=== PATIENT | female | born 1945 | race Caucasian/White ===

== ENCOUNTER → 2017-09-10 | Outpatient (CLI) | payer MEDICARE | END | disposition home or self-care (01) | LOC: PCVCCLINIC 11:21 | DX: I65.29 Occlusion and stenosis of unspecified carotid artery (principal); I25.119 Atherosclerotic heart disease of native coronary artery with unspecified angina pectoris; E78.1 Pure hyperglyceridemia; R09.89 Other specified symptoms and signs involving the circulatory and respiratory systems; I10 Essential (primary) hypertension; J44.9 Chronic obstructive pulmonary disease, unspecified; Z87.891 Personal history of nicotine dependence; Z79.899 Other long term (current) drug therapy | CPT/HCPCS: 80061; 93005; G0463 ==

== ENCOUNTER → 2017-10-02 | Outpatient (CLI) | payer MEDICARE | END | disposition home or self-care (01) | LOC: PCVCIMAG 09:47 | DX: I65.23 Occlusion and stenosis of bilateral carotid arteries (principal); R09.89 Other specified symptoms and signs involving the circulatory and respiratory systems; I10 Essential (primary) hypertension | CPT/HCPCS: 93325; 93351; 93880 ==

== ENCOUNTER → 2018-04-30 | Outpatient (CLI) | payer MEDICARE ==
--- NOTE | 2018-04-30 15:32 | PCVCIMAG ---
APPROVED REPORT Laterality: Bilateral Indications Stenosis Doppler Spectral Velocity Analysis PSV / EDVPSV / EDV ECA (R) 83 / 17 cm/sECA (L) 425 / 103 cm/s dICA (R) 108 / 21 cm/sdICA (L) 88 / 28 cm/s Jamal (R) 111 / 25 cm/smICA (L) 113 / 38 cm/s pICA (R) 134 / 42 cm/spICA (L) 204 / 55 cm/s Bulb (R) 50 / 14 cm/sBulb (L) 114 / 33 cm/s dCCA (R) 53 / 14 cm/sdCCA (L) 88 / 30 cm/s mCCA (R) 56 / 17 cm/smCCA (L) 115 / 37 cm/s pCCA (R) 46 / 13 cm/spCCA (L) 91 / 22 cm/s Vert (R) 59 / 17 cm/sVert (L) 60 / 18 cm/s ICA/CCA 2.53ICA/CCA 2.32 Findings The right carotid bulb has moderately severe calcified plaque. The right proximal internal carotid artery shows 60-70% stenosis. The right common carotid artery shows <40% stenosis. The right external carotid artery shows no significant stenosis. The left carotid bulb has moderately severe calcified plaque. The left proximal internal carotid artery shows 60-70% stenosis. The left common carotid artery shows <40% stenosis. The left external carotid artery shows >90% stenosis. Conclusion 1. Right internal carotid artery stenosis (60-70%) 2. Left internal carotid artey stenosis (60-70%) 3. Bilateral common carotid artery stenoses (<40%) 4. Antegrade vertebral flow
== END | disposition home or self-care (01) ==
LOC: PCVCIMAG 14:05
PROVIDERS: ATTEND Internal Medicine Cardiovascular Disease
DX: I65.23 Occlusion and stenosis of bilateral carotid arteries (principal); I25.10 Atherosclerotic heart disease of native coronary artery without angina pectoris; E78.00 Pure hypercholesterolemia, unspecified; J44.9 Chronic obstructive pulmonary disease, unspecified; I10 Essential (primary) hypertension; K21.9 Gastro-esophageal reflux disease without esophagitis; E78.5 Hyperlipidemia, unspecified; Z87.891 Personal history of nicotine dependence
CPT/HCPCS: 36415; 80061; 93005; 93880; G0463

== ENCOUNTER → 2021-07-10 | Outpatient (CLI) | payer MEDICARE ==
[2021-07-10 15:08] LABS: BASO # 0.1 x10^3/uL (0.0-0.2); BASO % 1 % (0-3); EOS # 0.4 x10^3/uL (0.0-0.7); EOS % 6 % (0-3); HEMOGLOBIN 10.3 g/dL (12.0-15.5); LYMPH # 1.2 x10^3/uL (1.0-4.8); LYMPH % 16 % (24-48); MEAN CORPUSCULAR HEMOGLOBIN 25 pg (25-35); MEAN CORPUSCULAR HGB CONC 31 g/dL (31-37); MEAN CORPUSCULAR VOLUME 81 fL (79-100); MONO # 0.7 x10^3/uL (0.0-1.1); MONO % 9 % (0-9); NEUT # 5.1 x10^3/uL (1.8-7.7); NEUT % 69 % (31-73); PLATELET COUNT 352 x10^3/uL (140-400); RED CELL DISTRIBUTION WIDTH 21.6 % (11.5-14.5); WHITE BLOOD COUNT 7.5 x10^3/uL (4.0-11.0)
[2021-07-10 15:43] LABS: CALCIUM 9.3 mg/dL (8.5-10.1); CREATININE 1.3 mg/dL (0.6-1.0); GFR 39.6; POTASSIUM 3.2 mmol/L (3.5-5.1)
[2021-07-10 15:47] LABS: ALBUMIN 3.1 g/dL (3.4-5.0); ALBUMIN/GLOBULIN RATIO 0.7 (1.0-1.7); MAGNESIUM 2.3 mg/dL (1.8-2.4); PHOSPHORUS 4.3 mg/dL (2.6-4.7); TOTAL BILIRUBIN 0.5 mg/dL (0.2-1.0); TOTAL PROTEIN 7.3 g/dL (6.4-8.2)
[2021-07-10 17:33] LABS: MICROCYTOSIS SLIGHT; PLT ESTIMATE ADEQUATE (ADEQUATE); POLYCHROMASIA SLIGHT
== END ==
LOC: ONCLAB 14:25
PROVIDERS: ATTEND Internal Medicine
DX: C34.11 Malignant neoplasm of upper lobe, right bronchus or lung (principal)
CPT/HCPCS: 36415; 80053; 83735; 84100; 85025

== ENCOUNTER 2021-07-25 09:03 | Emergency (ER) | payer MEDICARE ==
[~2021-07-25] VITALS: Ht 157.5 cm; Wt 51.8 kg
[2021-07-25] MEDS ORDERED: ASPIRIN 325 MG TABLET PO ONE (09:45)
[2021-07-25 09:57] LABS: BARBITURATES POS (NEG); BENZODIAZEPINES NEG (NEG); CANNABINOIDS NEG (NEG); COCAINE NEG (NEG); METHADONE NEG (NEG); OPIATES NEG (NEG); PHENCYCLIDINE NEG (NEG)
[2021-07-25 09:59] LABS: AMPHETAMINE/METHAMPHETAMINE NEG (NEG)
[2021-07-25] MEDS ORDERED: IV NORMAL SALINE 1000ML BAG 1,000 ML IV SCH (10:00)
[2021-07-25 10:07] LABS: BASO % 1 % (0-3); EOS # 0.4 x10^3/uL (0.0-0.7); EOS % 8 % (0-3); HEMATOCRIT 29.5 % (36.0-47.0); HEMOGLOBIN 9.7 g/dL (12.0-15.5); LYMPH # 0.6 x10^3/uL (1.0-4.8); LYMPH % 10 % (24-48); MEAN CORPUSCULAR HEMOGLOBIN 25 pg (25-35); MEAN CORPUSCULAR HGB CONC 33 g/dL (31-37); MEAN CORPUSCULAR VOLUME 78 fL (79-100); MONO # 0.5 x10^3/uL (0.0-1.1); MONO % 8 % (0-9); NEUT # 4.2 x10^3/uL (1.8-7.7); NEUT % 74 % (31-73); PLATELET COUNT 246 x10^3/uL (140-400); RED BLOOD COUNT 3.81 x10^6/uL (3.50-5.40); RED CELL DISTRIBUTION WIDTH 21.2 % (11.5-14.5); WHITE BLOOD COUNT 5.7 x10^3/uL (4.0-11.0)
[2021-07-25 10:19] LABS: PROTHROMBIN TIME PATIENT 23.7 SEC (11.7-14.0)
[2021-07-25 10:26] LABS: D-DIMER 1.32 ug/mlFEU (0.00-0.50)
[2021-07-25] MEDS ORDERED: ONDANSETRON PF 4 MG/2 ML VIAL. IVP ONE (10:30)
--- NOTE | 2021-07-25 10:30 | RAD ---
Exam Date: 07/25/2021 9:49 AM XR CHEST 1V Indication: Reason: lightheaded / Spl. Instructions: / History: . FINDINGS/ IMPRESSION: Right central venous catheter terminates in the SVC. Aorta is calcified. Mild left basilar scarring versus subsegmental atelectasis is noted. The cardiac silhouette and pulmonary vasculature are within normal limits. There is no focal consolidation, pleural effusion or pneumothorax. The visualized osseous structures are intact. Electronically signed by: Enrrique Cole MD (07/25/2021 10:28 AM) [id number]
[2021-07-25 10:32] LABS: ALBUMIN 2.6 g/dL (3.4-5.0); ALBUMIN/GLOBULIN RATIO 0.7 (1.0-1.7); ALK PHOS 80 U/L (46-116); ALT (SGPT) 26 U/L (14-59); AST (SGOT) 39 U/L (15-37); BLOOD UREA NITROGEN 18 mg/dL (7-20); BUN/CREATININE RATIO 13 (6-20); CALCIUM 9.6 mg/dL (8.5-10.1); CHLORIDE 89 mmol/L (98-107); CREATININE 1.4 mg/dL (0.6-1.0); GFR 36.4; GLUCOSE 104 mg/dL (70-99); LIPASE 69 U/L (73-393); MAGNESIUM 2.3 mg/dL (1.8-2.4); SODIUM 142 mmol/L (136-145); TOTAL BILIRUBIN 0.4 mg/dL (0.2-1.0); TOTAL PROTEIN 6.5 g/dL (6.4-8.2)
[2021-07-25 10:33] LABS: BACTERIA,URINE MANY /HPF (0-FEW)
[2021-07-25 10:34] LABS: RBC,URINE 0 /HPF (0-2)
[2021-07-25 10:38] LABS: POTASSIUM 2.8 mmol/L (3.5-5.1)
[2021-07-25 10:39] LABS: CARBON DIOXIDE > 45 mmol/L (21-32)
[2021-07-25] MEDS ORDERED: POTASSIUM CHLORIDE 20 MEQ TABLET.ER. PO ONE ×3 (10:45→11:15)
[2021-07-25 10:46] LABS: ANISOCYTOSIS SLIGHT; PLT ESTIMATE ADEQUATE (ADEQUATE)
[2021-07-25] MEDS ORDERED: IOHEXOL 350 MG/ML 100 ML VIAL. IV ONE ×4 (11:00→11:30)
--- NOTE | 2021-07-25 12:07 | EKG ---
[address] [place] [address] Test Date: 2021-07-25 Test Time: 09:45:16 Pat Name: BHAKTI ARROYO Department: Room: Gender: F Blockman: : 1945 Requested By: KOFI Macario Number: [id number] Reading MD: Brain Chowdhury Measurements Intervals [place] Rate: 68 P: NC: QRS: 48 QRSD: 108 T: 19 QT: 504 QTc: 542 Interpretive Statements ATRIAL FIBRILLATION PROLONGED QT Electronically Signed On 07-28-2021 10:36:10 CDT by Brain Chowdhury
--- NOTE | 2021-07-25 12:14 | RAD ---
CTA CHEST INDICATION: elevated ddimer, syncope, lightheaded Comparison: Chest radiograph 07/25/2021. CT chest 07/10/2021. PET/CT 02/17/2021 TECHNIQUE: Following the uneventful administration of intravenous contrast, 85 cc Omnipaque 350, axia l CT sections were obtained through the lungs and upper abdomen. Multiplanar reconstructions and MIP images were obtained. PQRS compliance statement: One or more of the following individualized dose reduction techniques were utilized for this examinat ion: 1. Automated exposure control 2. Adjustment of the mA and/or kV according to patient size 3. Use of iterative reconstruction technique FINDINGS: Right IJ Port-A-Cath. Pulmonary arteries: No evidence of pulmonary thromboembolic disease. Lungs and Airways: Stable right upper lobe 1.5 cm nodule. Centrilobular emphysema. No abnormality of the central airways. Pleura: Trace right pleural effusion. Heart and Mediastinum: The visualized thyroid is normal in size and attenuation. No axillary or supra clavicular lymphadenopathy. Stable mediastinal lymphadenopathy with field service representative lymph node as foll ows: enlarged right lower paratracheal lymph node measuring 3.5 x 2.4 cm. Normal cardiac size. No per icardial effusion. Coronary artery atherosclerotic disease. Atherosclerosis of the thoracic aorta. Abdomen: Limited images through the upper abdomen show no abnormality of the visualized organs. Bones and Soft Tissues: Degenerative changes of the spine. IMPRESSION: 1. No evidence of pulmonary thromboembolic disease. 2. Stable right upper lobe nodule and mediastinal lymphadenopathy, consistent with patient's history of lung cancer. Electronically signed by: Naga Christine MD (07/25/2021 12:12 PM) [id number]
[2021-07-25 14:08] VITALS: BP 145/63
--- NOTE | 2021-07-25 14:19 | PHYS DOC ---
Past Medical History Additional Past Medical Histor: lung cancer, heart murmur Past Surgical History: Hysterectomy, Other Additional Past Surgical Histo: R chest-port, cervical surgery, breast bx, cataracts General Adult EDM: Chief Complaint: DIZZY/LIGHT HEADED HPI: HPI: Patient is a 76 year old female presents with lightheadedness after port was being accessed for radiation therapy today. Patient states that she felt lightheaded so she decided to come to the emergency department. Patient states that she feels worse when she stands up. She states that she has not eaten or drank anything in the last couple of days because of nausea due to chemotherapy. Patient states that she is also also been taking a diuretic for fluid in her lungs. She states that she feels fine in her chest, no shortness of breath, no chest pain, no other symptoms. No nausea, no vomiting, no diarrhea, no constipation. Review of Systems: Review of Systems: Constitutional: Denies fever or chills. [] Eyes: Denies change in visual acuity. [] HENT: Denies nasal congestion or sore throat. [] Respiratory: Denies cough or shortness of breath. [] Cardiovascular: Denies chest pain or edema. [] GI: Denies abdominal pain, nausea, vomiting, bloody stools or diarrhea. [] : Denies dysuria. [] Musculoskeletal: Denies back pain or joint pain. [] Integument: Denies rash. [] Neurologic: Denies headache, focal weakness or sensory changes. [] Endocrine: Denies polyuria or polydipsia. [] Lymphatic: Denies swollen glands. [] Psychiatric: Denies depression or anxiety. [] Heart Score: C/O Chest Pain: No Risk Factors: Risk Factors: DM, Current or recent (<one month) smoker, HTN, HLP, family history of CAD, obesity. Risk Scores: Score 0 - 3: 2.5% MACE over next 6 weeks - Discharge Home Score 4 - 6: 20.3% MACE over next 6 weeks - Admit for Clinical Observation Score 7 - 10: 72.7% MACE over next 6 weeks - Early Invasive Strategies Current Medications: Current Medications Medications (Trade) Dose Ordered Sig/Reyes Start Time Stop Time Status Last Admin Dose Admin Aspirin (Sherri Aspirin) 325 mg 1X ONCE 07/25/21 09:45 07/25/21 09:49 DC 07/25/21 10:25 325 MG Iohexol (Omnipaque 350 Mg/ml) 85 ml 1X ONCE 07/25/21 11:30 07/25/21 11:31 DC Ondansetron HCl (Zofran) 4 mg 1X ONCE 07/25/21 10:30 07/25/21 10:31 DC 07/25/21 11:28 4 MG Potassium Chloride (Klor-Con) 20 meq 1X ONCE 07/25/21 11:15 07/25/21 12:39 DC Sodium Chloride 1,000 ml @ 1,000 mls/hr Q1H 07/25/21 10:00 07/25/21 10:59 DC 07/25/21 10:25 1,000 MLS/HR Allergies: Allergies: Allergies Coded Allergies Type Severity Reaction Last Updated Verified amoxicillin Allergy Unknown 07/25/21 Yes Physical Exam: PE: Constitutional: Well developed, well nourished, no acute distress, non-toxic ap pearance. [] HENT: Normocephalic, atraumatic, bilateral external ears normal, oropharynx moist, no oral exudates, nose normal. [] Eyes: PERRLA, EOMI, conjunctiva normal, no discharge. [] Neck: Normal range of motion, no tenderness, supple, no stridor. [] Cardiovascular:Heart rate regular rhythm, no murmur [] Lungs & Thorax: Bilateral breath sounds clear to auscultation [] Abdomen: Bowel sounds normal, soft, no tenderness, no masses, no pulsatile masses. [] Skin: Warm, dry, no erythema, no rash. Port present on right chest [] Back: No tenderness, no CVA tenderness. [] Extremities: No tenderness, no cyanosis, no clubbing, ROM intact, no edema. [] Neurologic: Alert and oriented X 3, normal motor function, normal sensory function, no focal deficits noted. [] Psychologic: Affect normal, judgement normal, mood normal. [] Current Patient Data: Labs: Laboratory Tests Test 07/25/21 09:30 07/25/21 09:58 07/25/21 12:53 Urine Collection Type Unknown Urine Color (Auto) Yellow Urine Turbidity Hazy Urine pH (Auto) 7.5 (<5.0-8.0) Urine Specific [place] 1.015 (1.000-1.030) Urine Protein (Auto) Negative mg/dL (Negative) Urine Glucose (Auto)(UA) Negative mg/dL (Negative) Urine Ketones (Auto) Negative mg/dL (Negative) Urine Blood (Auto) Negative (Negative) Urine Nitrite Negative (Negative) Urine Bilirubin (Auto) Negative (Negative) Urine Urobilinogen (Auto) Normal mg/dL (Normal) Urine Leukocyte Esterase (Auto) Negative (Negative) Urine RBC 0 /HPF (0-2) Urine WBC 5-10 /HPF (0-4) Urine Squamous Epithelial Cells Mod /LPF Urine Bacteria Many /HPF (0-FEW) Urine Opiates Screen Neg (NEG) Urine Methadone Screen Neg (NEG) Urine Barbiturates Pos (NEG) Urine Phencyclidine Screen Neg (NEG) Urine Amphetamine/Methamphetamine Neg (NEG) Urine Benzodiazepines Screen Neg (NEG) Urine Cocaine Screen Neg (NEG) Urine Cannabinoids Screen Neg (NEG) Urine Ethyl Alcohol Neg (NEG) White Blood Count 5.7 x10^3/uL (4.0-11.0) Red Blood Count 3.81 x10^6/uL (3.50-5.40) Hemoglobin 9.7 g/dL (12.0-15.5) L Hematocrit 29.5 % (36.0-47.0) L Mean Corpuscular Volume 78 fL (79-100) L Mean Corpuscular Hemoglobin 25 pg (25-35) Mean Corpuscular Hemoglobin Concent 33 g/dL (31-37) Red Cell Distribution Width 21.2 % (11.5-14.5) H Platelet Count 246 x10^3/uL (140-400) Neutrophils (%) (Auto) 74 % (31-73) H Lymphocytes (%) (Auto) 10 % (24-48) L Monocytes (%) (Auto) 8 % (0-9) Eosinophils (%) (Auto) 8 % (0-3) H Basophils (%) (Auto) 1 % (0-3) Neutrophils # (Auto) 4.2 x10^3/uL (1.8-7.7) Lymphocytes # (Auto) 0.6 x10^3/uL (1.0-4.8) L Monocytes # (Auto) 0.5 x10^3/uL (0.0-1.1) Eosinophils # (Auto) 0.4 x10^3/uL (0.0-0.7) Basophils # (Auto) 0.0 x10^3/uL (0.0-0.2) Platelet Estimate Adequate (ADEQUATE) Anisocytosis Slight Prothrombin Time 23.7 SEC (11.7-14.0) H Prothrombin Time INR 2.2 (0.8-1.1) H D-Dimer (Zakiya) 1.32 ug/mlFEU (0.00-0.50) H Sodium Level 142 mmol/L (136-145) Potassium Level 2.8 mmol/L (3.5-5.1) *L Chloride Level 89 mmol/L (98-107) L Carbon Dioxide Level > 45 mmol/L (21-32) H Anion Gap (6-14) Blood Urea Nitrogen 18 mg/dL (7-20) Creatinine 1.4 mg/dL (0.6-1.0) H Estimated GFR (Cockcroft-Gault) 36.4 BUN/Creatinine Ratio 13 (6-20) Glucose Level 104 mg/dL (70-99) H Calcium Level 9.6 mg/dL (8.5-10.1) Magnesium Level 2.3 mg/dL (1.8-2.4) Total Bilirubin 0.4 mg/dL (0.2-1.0) Aspartate Amino Transferase (AST) 39 U/L (15-37) H Alanine Aminotransferase (ALT) 26 U/L (14-59) Alkaline Phosphatase 80 U/L (46-116) Troponin I High Sensitivity 81 ng/L (4-50) H 74 ng/L (4-50) H OR-Sri-J-Type Natriuretic Peptide 1640 pg/mL (0-449) H Total Protein 6.5 g/dL (6.4-8.2) Albumin 2.6 g/dL (3.4-5.0) L Albumin/Globulin Ratio 0.7 (1.0-1.7) L Lipase 69 U/L (73-393) L Thyroid Stimulating Hormone (TSH) 5.056 uIU/mL (0.358-3.74) H Laboratory Tests 07/25/21 09:58 Laboratory Tests 07/25/21 09:58 Vital Signs: Vital Signs Date Time Temp Pulse Resp B/P (MAP) Pulse Ox O2 Delivery O2 Flow Rate FiO2 07/25/21 12:08 70 20 131/60 (83) 93 Nasal Cannula 2.0 07/25/21 09:37 98.4 98.4 EKG: EKG: Sinus rhythm with PACs, right axis deviation [] Radiology/Procedures: Radiology/Procedures: CT scan without evidence of pulmonary embolism, no fluid appreciated, stable right upper lobe lobe nodule and mediastinal lymphadenopathy consistent with history of lung cancer [] Impression: Dehydration, troponinemia type II, hypokalemia Course & Med Decision Making: Course & Med Decision Making Pertinent Labs and Imaging studies reviewed. (See chart for details) 76-year-old female with dehydration while on a diuretic. Patient was instructed to stop taking her diuretic. She was given 20 mill equivalents of potassium in the emergency department as well as given 1 L normal saline bolus. Patient is alert oriented, regained baseline after 1 L normal saline. Patient states that she did feel dehydrated. Patient has had no chest pain or shortness of breath, troponin was elevated but trended down. I spoke with cardiology on-call who stated that this is likely a type II troponin leak, patient may follow-up outpatient with primary care physician and may need to follow-up with cardiology for echocardiogram. Results were transmitted to the patient who understood and stated they would follow-up with a primary care physician. Patient stated she would stop her diuretic and start drinking more fluids. All questions answered, patient discharged in hemodynamically stable condition. Patient was able to ambulate normally and felt asymptomatic at the time of discharge. ER precautions given. Sahil Disclaimer: Sahil Disclaimer: This electronic medical record was generated, in whole or in part, using a voice recognition dictation system. Departure Departure Impression: Primary Impression: Dehydration Disposition: 01 HOME / SELF CARE / HOMELESS Condition: GOOD Patient Instructions: Dehydration, Adult, [id number] Additional Instructions: You should stop taking your diuretic medication Continue taking the rest of your medications, you should drink plenty of fluids as well, you should contact a physician if you are feeling short of breath or you can present to the emergency department. Please present to the emergency department if you are having chest pain. Otherwise your lightheadedness was likely due to dehydration Follow-up with your primary care physician, a lab result called a troponin was elevated slightly, I have spoken to a pacs specialist and you may need further work-up, however you will need to run this by your primary care physician. LONG,KOFI J MD July 25, 2021 14:19
--- NOTE | 2021-07-26 12:03 | EKG ---
[facility] [address] [place] [address] Test Date: 2021-07-25 Test Time: 12:57:04 Pat Name: BHAKTI ARROYO Department: Room: Gender: F [employer] In[employer]: - : 1945 Requested By: KOFI Macario Number: [id number] Reading MD: Brain Chowdhury Measurements Intervals [place] Rate: 64 P: 90 [place]: 146 QRS: 133 QRSD: 98 T: 158 QT: 526 QTc: 548 Interpretive Statements SINUS ARRHYTHMIA ATRIAL PREMATURE COMPLEX(ES) NON SPECIFIC ST-T WAVE CHANGES Electronically Signed On 07-28-2021 10:33:53 CDT by Brain Chowdhury
--- NOTE | 2021-08-01 14:07 | NUR ---
I received a call from [facility] pharmacy, patient has an allergy to amoxicillin that was ordered for her for her UTI, I placed the patient on Macrobid after reviewing her microbiology results which showed her UTI susceptible to that medication. I called in Macrobid 100 mg take 1 tablet twice daily for 7 days.
== END 2021-07-25 14:20 | disposition home or self-care (01) ==
LOC: ER 09:03
DX: E86.0 Dehydration (principal); Z88.1 Allergy status to other antibiotic agents
CPT/HCPCS: 36415; 71045; 71275; 80053; 80307; 81001; 83690; 83735; 83880; 84443; 84484; 85025; 85379; 85610; 87077; 87086; 87186; 93005; 96361; 96374; 99285; J2405; J7030; Q9967

== ENCOUNTER → 2021-08-03 | Outpatient (CLI) | payer MEDICARE ==
[2021-07-25 14:08] VITALS: BP 145/63
[2021-08-03 10:32] LABS: BASO % 0 % (0-3); EOS % 1 % (0-3); HEMATOCRIT 25.8 % (36.0-47.0); HEMOGLOBIN 8.4 g/dL (12.0-15.5); LYMPH # 0.3 x10^3/uL (1.0-4.8); LYMPH % 6 % (24-48); MEAN CORPUSCULAR HEMOGLOBIN 26 pg (25-35); MEAN CORPUSCULAR HGB CONC 33 g/dL (31-37); MEAN CORPUSCULAR VOLUME 79 fL (79-100); MONO # 0.7 x10^3/uL (0.0-1.1); MONO % 14 % (0-9); NEUT % 79 % (31-73); PLATELET COUNT 328 x10^3/uL (140-400); RED BLOOD COUNT 3.28 x10^6/uL (3.50-5.40); RED CELL DISTRIBUTION WIDTH 22.3 % (11.5-14.5)
[2021-08-03 10:57] LABS: ALBUMIN 2.2 g/dL (3.4-5.0); ALBUMIN/GLOBULIN RATIO 0.6 (1.0-1.7); CALCIUM 7.8 mg/dL (8.5-10.1); GFR 53.6; MAGNESIUM 1.4 mg/dL (1.8-2.4); PHOSPHORUS 1.8 mg/dL (2.6-4.7); TOTAL BILIRUBIN 0.5 mg/dL (0.2-1.0); TOTAL PROTEIN 5.6 g/dL (6.4-8.2)
[2021-08-03 11:02] LABS: POTASSIUM 2.3 mmol/L (3.5-5.1)
[2021-08-03 12:45] LABS: % BANDS 12 % (0-9); % EOS 1 % (0-5); % LYMPHS 8 % (24-48); % MONOS 7 % (0-10); % SEGS 72 % (35-66)
[2021-08-03 12:46] LABS: ANISOCYTOSIS PRESENT; PLT ESTIMATE ADEQUATE (ADEQUATE)
== END ==
LOC: ONCLAB 10:18
PROVIDERS: ATTEND Internal Medicine Hematology & Oncology
DX: C34.11 Malignant neoplasm of upper lobe, right bronchus or lung (principal)
CPT/HCPCS: 36415; 80053; 83735; 84100; 85007; 85025